=== PATIENT | male | born 1990 | race American Indian/Alaskan Native ===

== ENCOUNTER 2018-10-02 14:25 | Emergency (ER) | payer SELFPAY ==
--- NOTE | 2018-10-02 14:40 | Event Note ---
ED Screening Note ED Screening Note: pt presents with substernal cp that began two weeks ago +cough +rhinorrhea no fever no sick contacts PMHx PUD- not taking meds currently This initial assessment/diagnostic orders/clinical plan/treatment(s) is/are subject to change based on patients health status, clinical progression and re-assessment by fellow clinical providers in the ED. Further treatment and workup at subsequent clinical providers discretion. Patient/guardian urged not to elope from the ED as their condition may be serious if not clinically assessed and managed. Initial orders include: CXR, EKG
[2018-10-02 14:41] VITALS: BP 99/66
--- NOTE | 2018-10-02 15:29 | XRay Report ---
CHEST 2 VIEWS INDICATION: Chest pain. COMPARISON: None FINDINGS: Support devices: None. Heart: Within normal limits. Lungs/pleura: No acute air space or interstitial disease. No pneumothorax. Additional findings: None. IMPRESSION: No acute findings. Signer Name: Aleksandar Clements Jr, MD Signed: 10/02/2018 3:25 PM Workstation Name: [id number]
--- NOTE | 2018-10-02 16:36 | Emergency Department Report ---
ED Chest Pain HPI - General Chief Complaint: Chest Pain Stated Complaint: CHEST PAIN/SOB/LOWER BACK/WAIST AREA PAIN Time Seen by Provider: 10/02/18 14:39 Source: patient Mode of arrival: Ambulatory Limitations: No Limitations - History of Present Illness Initial Comments: Mr. haider is a very pleasant 27-year-old male with history of peptic ulcer disease, inguinal hernia and right shoulder dislocation who presents with multiple concerns. For over a year he has been evaluated at [facility] for stomach issues. He had EGD performed which revealed ulcers in the GI tract. He was then referred to a general surgeon for evaluation of inguinal hernia. Due to busy schedule, he was unable to arrange the consultation. He kindly requests referral to a surgeon. He's had nonspecific chest pain he states that his chest feels ""puffed up". mild left back pain nonspecific without trauma. The chest and back pain has been present for at least 2 weeks. Intermittent. Nausea station with movement or eating. Gradual onset of symptoms. Dull nonspecific quality of both entities. MD Complaint: chest pain, other (back pain) -: Gradual, week(s) (2) Onset: during rest Pain Location: substernal, left chest, right chest Severity: mild Severity scale (0 -10): 4 Quality: aching, dull Consistency: constant Improves With: nothing Worsens With: nothing Heart Score - HEART Score History: Slightly suspicious EKG: Normal Age: < 45 Risk factors: No known risk factors Troponin: < normal limit HEART Score: 0 ED Review of Systems ROS: Stated complaint: CHEST PAIN/SOB/LOWER BACK/WAIST AREA PAIN Other details as noted in HPI Comment: All other systems reviewed and negative Constitutional: denies: fever, malaise Respiratory: denies: shortness of breath Cardiovascular: chest pain Gastrointestinal: denies: abdominal pain, nausea, vomiting Musculoskeletal: back pain ED Past Medical Hx - Past Medical History Previous Medical History?: Yes Hx Hypertension: No Hx CVA: No Hx Heart Attack/AMI: No Hx Congestive Heart Failure: No Hx Diabetes: No Hx Deep Vein Thrombosis: No Hx Pulmonary Embolism: No Hx GERD: No Hx Liver Disease: No Hx Renal Disease: No Hx of Cancer: No Hx Sickle Cell Disease: No Hx Arthritis: No Hx Headaches / Migraines: No Hx Seizures: No Hx Kidney Stones: No Hx Psychiatric Treatment: No Hx Asthma: No Hx COPD: No Hx Tuberculosis: No Hx Dementia: No Hx HIV: No Additional medical history: ulcer - Surgical History Past Surgical History?: No Hx Coronary Stent: No Hx Open Heart Surgery: No Hx Pacemaker: No Hx Internal Defibrillator: No Hx Cholecystectomy: No Hx Appendectomy: Yes Hx Breast Surgery: No Additional Surgical History: tonsils removed - Social History Smoking Status: Never Smoker Substance Use Type: None ED Physical Exam - General Limitations: No Limitations General appearance: alert, in no apparent distress - Head Head exam: Present: atraumatic, normocephalic - Eye Eye exam: Present: normal appearance - ENT ENT exam: Present: mucous membranes moist - Neck Neck exam: Present: normal inspection, full ROM - Respiratory Respiratory exam: Present: normal lung sounds bilaterally. Absent: respiratory distress, wheezes, rales, rhonchi - Cardiovascular Cardiovascular Exam: Present: regular rate, normal rhythm. Absent: systolic murmur, diastolic murmur, rubs, gallop - GI/Abdominal GI/Abdominal exam: Present: soft, normal bowel sounds. Absent: distended, tenderness, guarding, rebound - Rectal Rectal exam: Present: deferred - Extremities Exam Extremities exam: Present: normal inspection - Back Exam Back exam: Present: normal inspection - Neurological Exam Neurological exam: Present: alert, oriented X3 - Psychiatric Psychiatric exam: Present: normal affect, normal mood - Skin Skin exam: Present: warm, dry, intact, normal color. Absent: rash ED Course Vital Signs 10/02/18 14:39 Temperature 99.3 F Pulse Rate 98 H Respiratory 16 Rate Blood Pressure 99/66 [Left] O2 Sat by Pulse 97 Oximetry ED Medical Decision Making - EKG Data EKG shows normal: sinus rhythm, axis, intervals, QRS complexes, ST-T waves Rate: normal - EKG Data Interpretation: normal EKG - Radiology Data Radiology results: report reviewed Chest radiographs: No acute process according to radiology report. - Medical Decision Making Jayden presents with nonspecific chest and back pain without indication of acute emergent condition such as pulmonary embolism, pneumothorax, aortic dissection, pericarditis, pneumonia. EKG chest x-ray normal. I recommended PPI therapy. He politely declined. PERC negative for PE Given referral to outside medical clinic. Also given referral to general surgeon as requested. Critical care attestation.: If time is entered above; I have spent that time in minutes in the direct care of this critically ill patient, excluding procedure time. ED Disposition Clinical Impression: Chest wall pain, Back pain Disposition: TO HOME OR SELFCARE Is pt being admited?: No Does the pt Need Aspirin: No Condition: Stable Instructions: Chest Pain (ED), Low Back Strain (ED) Referrals: ALINE ESPOSITO MD [Staff Physician] - 3-5 Days [facility] [Outside] - 3-5 Days Forms: Work/School Release Form(ED)
== END 2018-10-02 16:43 | disposition home or self-care (01) ==
LOC: ED 14:25
DX: R07.89 Other chest pain (principal); M54.89 Other dorsalgia; Z98.890 Other specified postprocedural states
CPT/HCPCS: 71046; 93005; 93010; 99283